=== PATIENT | female | born 1945 | race Caucasian/White ===

== ENCOUNTER 2016-09-24 06:06 | Day surgery (SDC) | payer MEDICARE, OTHER ==
--- NOTE | ~2016-09-24 | EGD ---
EGD REPORT [facility] [address] [id number] NAME: DENNIS WHITMORE : [birth year] STATUS : [place] [facility] [place] [facility] [place] PAT#: [id number] AGE: 71 ADM/REG DATE : 09/24/16 MR#: [id number] REPORT SERV DATE: 09/24/16 DICTATED BY: SILKE LEIVA DATE: 09/24/16 REPORT STATUS : Draft TRANSCRIBED BY: [facility] DATE: 09/24/16 Endoscopy Center Patient Name: Dennis Whitmore Date of : 1945 Attending MD: SILKE LEIVA, Procedure Date No Time: 09/24/2016 Procedure: Upper GI endoscopy Indications: Epigastric abdominal pain Referring MD: ULISSES FAIRBANKS Medicines: Monitored Anesthesia Care Complications: No immediate complications. Estimated blood loss: None. Procedure: Pre-Anesthesia Assessment: - ASA Grade Assessment: II - A patient with mild systemic disease. After obtaining informed consent, the endoscope was passed under direct vision. Throughout the procedure, the patient's blood pressure, pulse, and oxygen saturations were monitored continuously. The GIF [id number] was introduced through the mouth, and advanced to the second part of duodenum. The upper GI endoscopy was accomplished without difficulty. The patient tolerated the procedure well. Findings: The examined esophagus was normal. Patchy minimal inflammation characterized by erythema was found in the stomach. Biopsies were taken with a cold forceps for histology. Verification of patient identification for the specimen was done. Estimated blood loss was minimal. The cardia and gastric fundus were normal on retroflexion. The exam of the stomach was otherwise normal. The examined duodenum was normal. Multiple biopsies were obtained in the 2nd part of the duodenum with cold forceps for histology. Impression: - Normal esophagus. - Gastritis. Biopsied. - Normal examined duodenum. - Multiple biopsies were obtained in the 2nd part of the duodenum. Recommendation: - Patient has a contact number available for emergencies. The signs and symptoms of potential delayed complications were discussed with the patient. Return to normal activities tomorrow. Written discharge instructions were provided to the patient. EGD REPORT [facility] [address] [place], [place] [address]. [address] NAME: DENNIS WHITMORE : [birth year] STATUS : [place] [facility] [place] [facility] [place] PAT#: [id number] AGE: 71 ADM/REG DATE : 09/24/16 MR#: [id number] REPORT SERV DATE: 09/24/16 DICTATED BY: SILKE LEIVA DATE: 09/24/16 REPORT STATUS : Draft TRANSCRIBED BY: [employer] DATE: 09/24/16 - Return to previous diet. - Continue present medications. - Await pathology results. - Return to GI clinic in 4 weeks. Procedure Code(s): --- Professional --- 14305, Esophagogastroduodenoscopy, flexible, transoral; with biopsy, single or multiple Diagnosis Code(s): --- Professional --- K29.70, Gastritis, unspecified, without bleeding R10.13, Epigastric pain CPT copyright 2013 [employer]. All rights reserved. The codes documented in this report are preliminary and upon remote medical coder review may be revised to meet current compliance requirements. SILKE LEIVA, 09/24/2016 8:12 AM Number of Addenda: 0 Note Initiated On: 09/24/2016 7:39 AM Scope Withdrawal Time 0 hours 0 minutes [address] [place] [id number]
--- NOTE | ~2016-09-24 | EGD ---
EGD REPORT [facility] [address] [address] NAME: DENNIS WHITMORE : [birth year] [place]US : [place] [facility] [place] PAT#: [id number] AGE: 71 ADM/REG DATE : 09/24/16 MR#: [id number] REPORT SERV DATE: 09/24/16 DICTATED BY: SILKE LEIVA DATE: 09/24/16 REPORT STATUS : Draft TRANSCRIBED BY: [employer] DATE: 09/24/16 Endoscopy Center Patient Name: Dennis Whitmore Date of : 1945 Attending MD: SILKE LEIVA, Procedure Date No Time: 09/24/2016 Procedure: Colonoscopy Indications: Screening for colorectal malignant neoplasm Referring MD: ULISSES FAIRBANKS Medicines: Monitored Anesthesia Care Complications: No immediate complications. Estimated blood loss: None. Procedure: Pre-Anesthesia Assessment: - ASA Grade Assessment: II - A patient with mild systemic disease. After I obtained informed consent, the scope was passed under direct vision. Throughout the procedure, the patient's blood pressure, pulse, and oxygen saturations were monitored continuously. The CF [id number] was introduced through the anus and advanced to the cecum, identified by appendiceal orifice and ileocecal valve. The colonoscopy was performed without difficulty. The patient tolerated the procedure well. The quality of the bowel preparation was good. Findings: The perianal and digital rectal examinations were normal. Internal hemorrhoids were found during retroflexion and were Grade II (internal hemorrhoids that prolapse but reduce spontaneously). A sessile polyp was found in the ascending colon. The polyp was 10 mm in size. The polyp was removed with a hot snare. Resection and retrieval were complete. Verification of patient identification for the specimen was done. Estimated blood loss was minimal. Two sessile polyps were found in the ascending colon. The polyps were 2 to 3 mm in size. These polyps were removed with a cold biopsy forceps. Resection and retrieval were complete. Verification of patient identification for the specimen was done. Estimated blood loss was minimal. A pedunculated polyp was found in the transverse colon. The polyp was 12 mm in size. The polyp was removed with a hot snare. Resection and retrieval were complete. Verification of patient identification for the specimen was done. Estimated blood loss was minimal. A sessile polyp was found in the rectum. The polyp was 3 mm in size. The polyp was removed with a cold biopsy forceps. Resection and retrieval were complete. Verification of patient identification for the specimen was done. Estimated blood loss was minimal. EGD REPORT [address] [address] NAME: DENNIS WHITMORE : [birth year] STATUS : [place] [facility] [place] PAT#: [id number] AGE: 71 ADM/REG DATE : 09/24/16 MR#: [id number] REPORT SERV DATE: 09/24/16 DICTATED BY: SILKE LEIVA DATE: 09/24/16 REPORT STATUS : Draft TRANSCRIBED BY: [employer] DATE: 09/24/16 Many small-mouthed diverticula were found in the sigmoid colon, in the descending colon, in the transverse colon and in the ascending colon. The exam was otherwise without abnormality on direct and retroflexion views. Impression: - Internal hemorrhoids. - One 10 mm polyp in the ascending colon. Resected and retrieved. - Two 2 to 3 mm polyps in the ascending colon. Resected and retrieved. - One 12 mm polyp in the transverse colon. Resected and retrieved. - One 3 mm polyp in the rectum. Resected and retrieved. - Diverticulosis in the sigmoid colon, in the descending colon, in the transverse colon and in the ascending colon. - The examination was otherwise normal on direct and retroflexion views. Recommendation: - Patient has a contact number available for emergencies. The signs and symptoms of potential delayed complications were discussed with the patient. Return to normal activities tomorrow. Written discharge instructions were provided to the patient. - Return to previous diet. - Continue present medications. - Repeat colonoscopy for surveillance based on pathology results. - Await pathology results. Procedure Code(s): --- Professional --- 87031, Colonoscopy, flexible, proximal to splenic flexure; with removal of tumor(s), polyp(s), or other lesion(s) by snare technique 81019, 59, Colonoscopy, flexible, proximal to splenic flexure; with biopsy, single or multiple Diagnosis Code(s): --- Professional --- K64.1, Second degree hemorrhoids K57.30, Diverticulosis of large intestine without perforation or abscess without bleeding K62.1, Rectal polyp D12.3, Benign neoplasm of transverse colon D12.2, Benign neoplasm of ascending colon Z12.11, Encounter for screening for malignant neoplasm of colon EGD REPORT [facility] [address] [facility] [place] [place]. [address] NAME: DENNIS WHITMORE : [birth year] STATUS : REG [facility]#: [id number] AGE: 71 ADM/REG DATE : 09/24/16 MR#: [id number] REPORT SERV DATE: 09/24/16 DICTATED BY: SILKE LEIVA DATE: 09/24/16 REPORT STATUS : Draft TRANSCRIBED BY: [employer] DATE: 09/24/16 CPT copyright 2013 [employer]. All rights reserved. The codes documented in this report are preliminary and upon studio technician video operator review may be revised to meet current compliance requirements. SILKE LEIVA, 09/24/2016 8:15 AM Number of Addenda: 0 Note Initiated On: 09/24/2016 7:38 AM Scope Withdrawal Time 0 hours 17 minutes 1 second [address] [place] [address]
[~2016-09-24 06:06] MED LIST: ADVIL PO; DEPAKOTEER PO; NEUR300 PO
== END 2016-09-24 23:59 | disposition home or self-care (01) ==
LOC: DMU 06:06
PROVIDERS: Internal Medicine Gastroenterology
PROC: 0DBK8ZZ Excision of Ascending Colon, Via Natural or Artificial Opening Endoscopic (ICD-10-PCS; principal; 2016-09-24 07:30)
PROC: 0DBP8ZZ Excision of Rectum, Via Natural or Artificial Opening Endoscopic (ICD-10-PCS; 2016-09-24 07:30)
PROC: 0DBL8ZZ Excision of Transverse Colon, Via Natural or Artificial Opening Endoscopic (ICD-10-PCS; 2016-09-24 07:30)
DX: Z12.11 Encounter for screening for malignant neoplasm of colon (principal); K29.50 Unspecified chronic gastritis without bleeding; B96.81 Helicobacter pylori [H. pylori] as the cause of diseases classified elsewhere; D12.2 Benign neoplasm of ascending colon; D12.3 Benign neoplasm of transverse colon; D12.8 Benign neoplasm of rectum; K64.1 Second degree hemorrhoids; K57.30 Diverticulosis of large intestine without perforation or abscess without bleeding; R10.13 Epigastric pain; Z88.5 Allergy status to narcotic agent; G40.909 Epilepsy, unspecified, not intractable, without status epilepticus; F17.210 Nicotine dependence, cigarettes, uncomplicated; R35.0 Frequency of micturition; F41.9 Anxiety disorder, unspecified; F32.9 Major depressive disorder, single episode, unspecified; Z90.710 Acquired absence of both cervix and uterus; Z90.49 Acquired absence of other specified parts of digestive tract; Z98.890 Other specified postprocedural states
CPT/HCPCS: 88305; 88342